=== PATIENT | male | born 1965 ===

== ENCOUNTER 2024-07-28 00:46 | Outpatient (CLI) | payer OTHER, SELFPAY ==
--- NOTE | 2024-07-28 11:09 | DI.RAD_ITS ---
Exam(s) XR KNEE LT 3V AP,LAT,HERBER EXAM: XR KNEE LT 3V AP,LAT,HERBER CLINICAL HISTORY: Arthritis, M13.80, VES #[id number]. TECHNIQUE: 2D digital imaging was performed. Three views. COMPARISON: No exams were available for comparison FINDINGS: BONES: No acute fracture is present. Deformity of the lateral tibial plateau consistent with an old fracture. The joint spaces are maintained. No bony destructive lesion is seen. Enthesophyte at [place] driceps insertion on patella. JOINTS: The knee is normally aligned. No joint effusion is seen. SOFT TISSUE: Normal. IMPRESSION: deformity of the lateral tibial plateau consistent with an old healed fracture. DATA REPOSITORY: RADIATION DOSE DELIVERED:
== END 2024-07-28 01:06 ==
LOC: DI 00:46
PROVIDERS: Visit Provider Chiropractor
DX: M13.80 Other specified arthritis, unspecified site (principal)
CPT/HCPCS: 73562